=== PATIENT | female | born 1970 | race Caucasian/White ===

== ENCOUNTER 2019-04-29 14:49 | Inpatient (IN) | payer OTHER ==
[~2019-04-29] VITALS: Ht 170.2 cm; Wt 79.6 kg
--- NOTE | ~2019-04-29 | HC ---
[facility] [place] [address] CONSULTATION Name: SARBJIT ROBERT Room #: 214-P [facility] IN M.R.#: [id number] Admission: 04/29/19 Attend Phys: Les Trotter MD Discharge: 04/30/19 Date of : 68 Report #: [id number] THIS REPORT FOR: //name// CC: JANES Trotter DATE OF SERVICE: 04/30/2019 HISTORY OF PRESENT ILLNESS: This is a 49-year-old female patient who was evaluated by me for neurological etiology for the patient's dizziness. This patient indicated that she had small dizziness before yesterday; she woke up and had severe dizziness. The movement of the head makes it worse. She does not have any focal neurological deficit. She is getting better. However, she still has significant amount of symptoms. She had a CT scan of the head, CT angio and MRI as an evaluation. I reviewed those and they all demonstrate no abnormality which can explain the patient's symptoms. REVIEW OF SYSTEMS: Indicates she is healthy. She does have some dizziness occasionally. She had an ovarian cyst in the past. She has a history of hysterectomy and some migraine. Otherwise, 14-point review of system was mostly unremarkable. PAST MEDICAL HISTORY: Positive for mild dizziness, but nothing like this. FAMILY HISTORY: Unremarkable. SOCIAL HISTORY: She does not drink alcohol, but she smokes. PHYSICAL EXAMINATION: Indicates she is alert, responsive, able to follow simple and complex commands. Her speech looks intact. Cranial nerve examination, 2-12 looks unremarkable. Specifically, there is no nystagmus there. She moves all 4 extremities and strength, sensation, reflexes and tone is symmetrical. There is no papilledema. There is no meningeal sign. She is a well-developed individual who does not have any dysmorphic features of eyes, ears and face. Her hearing and vision is adequate. She does not have a thyroid mass. Her cardiac and respiratory examination is unremarkable. No respiratory difficulty or rhonchi was noticed. Blood pressure is 130/84, respiration is 18, pulse is 63, temperature is 98.4. Her white count is 7.4. She did have extensive imaging studies which were reviewed and that was mostly unremarkable. [address] [address] CONSULTATION Name: SARBJIT ROBERT Room #: 214-P [facility] IN ..#: [id number] Admission: 04/29/19 Attend Phys: Les Trotter MD Discharge: 04/30/19 Date of : 68 Report #: [id number] IMPRESSION: It is unlikely there is any neurological etiology for the patient's dizziness. I will recommend concentrating on systemic workup including ENT and any cardiac workup because she has some history of orthostatic hypotension, but the history is not totally clear. In any event, I do not think any further neurological workup is indicated and we should confine ourselves to systemic workup, and I suspect ENT evaluation will be the next step in her evaluation and I would recommend that. Thank you very much for this referral. We will not follow up this patient, but please call if further neurological followup is needed. By: [id number] Juni Rubin MD /nt
[2019-04-29 14:49] VITALS: BP 143/85
[~2019-04-29 14:49] MED LIST: CARAFATE 11 GM/10 M1 PO; CIPROFLOXACIN500 M1 PO; FLAGYL500 MG PO; NOHOMEMEDICATIONS; PERCOCET 5-3251 EACH PO; PROTONIX40 MG PO; VALIUM5 MG PO; ZOFRAN ODT4 MG PO
[2019-04-29 15:16] LABS: ABSOLUTE NEUTROPHILS 5.4 thou/uL (1.4-8.2); BASOPHILS 0.7 % (0.0-2.0); HEMATOCRIT 45.4 % (37.0-47.0); HEMOGLOBIN 15.2 gm/dL (12.0-15.0); LYMPHOCYTES 18.5 % (24.0-44.0); MCH 31.9 pg (26.0-34.0); MCHC 33.4 g/dL (28.0-37.0); MCV 95.6 fL (80.0-100.0); MONOCYTES 6.1 % (1.0-8.0); PLATELET COUNT 233 thou/uL (150-400); POLYS 72.7 % (36.0-66.0); RBC 4.75 mil/uL (4.20-5.00); WBC 7.4 thou/uL (4.0-11.0)
[2019-04-29 15:26] LABS: ANION GAP 7 mmol/L (7-16); BUN 11 mg/dL (7-18); CHLORIDE 102 mmol/L (98-107); CO2 28 mmol/L (21-32); CREATININE 0.9 mg/dL (0.6-1.0); GLUCOSE 89 mg/dL (74-106); POTASSIUM 3.9 mmol/L (3.5-5.1); SODIUM 137 mmol/L (136-145)
[2019-04-29 15:28] LABS: APTT 27.5 Seconds (24.5-32.8)
[2019-04-29 15:36] LABS: ALBUMIN 4.2 g/dL (3.4-5.0); SGOT 19 U/L (15-37); SGPT 30 U/L (30-65); TOTAL BILIRUBIN 0.4 mg/dL (<0.1-1.0); TOTAL PROTEIN 7.5 g/dL (6.4-8.2); TROPONIN-I <0.06 ng/mL (<0.06)
[2019-04-29] MEDS ORDERED: MECLIZINE HCL25 M1 PO (18:28)
[2019-04-29] MEDS ORDERED: ZOFRAN ODT4 MG PO (18:28)
[2019-04-29] MEDS ORDERED: VALIUM5 MG PO (18:28)
[2019-04-29 22:01] VITALS: BP 105/61
[2019-04-29 23:05] VITALS: BP 128/70
[2019-04-29 23:09] VITALS: BP 149/82
--- NOTE | 2019-04-30 00:09 | NUR ---
ADMIT.PT ADMITTED FROM ED TO 214 WITH VERTIGO.PT ACCOMPANIED BY STAFF.PT C/O STILL BEING DIZZINESS AND HEADACHE UPON ARRIVAL TO UNIT.PT ADMITTED OF HAVING ON AND OFF MIGRAINES CAUSED MOSTLY BY STRESS.VSS.NSR ON MONITOR.RA W/O RESP DISTRESS.FALL PRECAUTIONS INTIATED.ASSESSMENT DOCUMENTED.PT ORIENTED TO AND UNIT ACTIVITIES.DENIES USE OF ANY MEDICATIONS APART FROM OVER THE COUNTER EXCEDRINE WHEN NEEDED FOR MIGRAINES AND SINUSES.DENIES NAUSEA.PT DENIES ANY NEEDS AT THIS TIME.WILL CONTINUES TO MONITOR PER POC.
[2019-04-30 04:39] VITALS: BP 144/91
--- NOTE | 2019-04-30 07:33 | EKG ---
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 : 1970 Requested By: Hosea Hawkins Order Number: [id number] MD: Herberth Doll Measurements Intervals [place] Rate: 70 P: 55 WV: 157 QRS: 53 QRSD: 84 T: -23 QT: 409 QTc: 442 Interpretive Statements Sinus rhythm Nonspecific ST and T wave abnormality Compared to ECG 12/23/2003 15:59:11 No significant changes Electronically Signed On 04-30-2019 7:33:15 HEALTH TECHNICIAN by Herberth Doll [email or web address] <ELECTRONICALLY SIGNED> By: Herberth Doll MD, [facility] 04/30/19 0733 1523 1523 Herberth Doll MD, [facility] /EPI
[2019-04-30 08:00] VITALS: BP 130/84
--- NOTE | 2019-04-30 12:02 | NUR ---
ASSUMED CARE AT 0700, SHIFT ASSESSMENT DONE, MEDS GIVEN, VSS. DENIES PAIN, NAUSEA, VOMITING. STILL FEELING LIGHT HEADED AND DIZZY. UP WITH ONE PERSON ASSIST TO THE BATHROOM. FALL PRECAUTIONS IN PLACE. ROOM AIR, NSR ON TELE. NEUROLOGY CONSULT, MRI AND CT SCAN PENDING. LEFT FOR CT SCAN AT 1200 PM. WILL CONTINUE TO ASSESS AND ASSIST WITH ADLs NEEDED.
[2019-04-30 16:00] VITALS: BP 138/86
--- NOTE | 2019-04-30 16:09 | 2DMMODE ---
[facility] [address] [place] [address] 2 D/M-MODE ECHOCARDIOGRAM Name: SARBJIT ROBERT Room #: 214-P [facility] IN .R.#: [id number] Admission: 04/29/19 Attend Phys: Les Trotter, Discharge: Date of : 68 Report #: [id number] THIS REPORT FOR: //name// APPROVED REPORT Study performed: 04/30/2019 15:14:42 EXAM: Comprehensive 2D, Doppler, and color-flow Echocardiogram Patient Location: Echo lab Room #: [facility] Status: routine BSA: 1.91 HR: 63 bpm BP: 130/84 mmHg Rhythm: NSR Other Information Study Quality: Good Indications Dizziness and Vertigo 2D Dimensions RVDd: 35.16 mm IVSd: 8.22 (7-11mm) LVOT Diam: 19.49 (18-24mm) LVDd: 49.90 mm PWd: 8.28 (7-11mm) Ascending Ao: 29.37 (22-36mm) LVDs: 32.42 (25-40mm) Aortic Root: 32.21 mm IVC: 16.00 mm Volumes Left Atrial Volume (Systole) Single Plane 4CH: 58.85 mL Single Plane 2CH: 49.39 mL LA ESV Index: 34.00 mL/m2 Aortic Valve AoV Peak Collins.: 1.13 m/s AO Peak Gr.: 5.09 mmHg LVOT Max P.31 mmHg LVOT Max V: 0.91 m/s TRIPP Vmax: 2.41 cm2 Mitral Valve E/A Ratio: 1.3 MV Decel. Time: 231.01 ms MV E Max Collins.: 0.72 m/s [facility] [address] [place] [address] 2 D/M-MODE ECHOCARDIOGRAM Name: JAKOBSARBJIT Basil Room #: 214-P [facility] IN ..#: [id number] Admission: 04/29/19 Attend Phys: Les Trotter, Discharge: Date of : 68 Report #: [id number] MV A Collins.: 0.55 m/s MV PHT: 66.99 ms IVRT: 106.11 ms Pulmonary Valve PV Peak Collins.: 1.08 m/s PV Peak Gr.: 4.64 mmHg Pulmonary Vein P Vein S: 0.50 m/s P Vein A: 0.27 m/s P Vein D: 0.35 m/s P Vein A Dur.: 92.3 msec P Vein S/D Ratio: 1.43 Tricuspid Valve TR Peak Collins.: 2.50 m/s TR Peak Gr.: 25.03 mmHg PA Pressure: 30.00 mmHg Left Ventricle The left ventricle is normal size. There is normal LV segmental wall motion. There is normal left ventricular wall thickness. Left ventricular systolic function is normal. The left ventricular ejection fraction is within the normal range. LVEF is 55-60%. The left ventricular diastolic function is normal. Right Ventricle The right ventricle is normal size. The right ventricular systolic function is normal. Atria Left atrium is at the upper limits of normal. Right atrium is at the upper limits of normal. Aortic Valve The aortic valve is normal in structure. No aortic regurgitation is present. There is no aortic valvular stenosis. Mitral Valve The mitral valve is normal in structure. Trace mitral regurgitation. No evidence of mitral valve stenosis. Tricuspid Valve The tricuspid valve is normal in structure. There is trace tricuspid regurgitation. Estimated PAP 30 mmHg. There is no pulmonary [place] [address] 2 D/M-MODE ECHOCARDIOGRAM Name: JAKOBSARBJIT Room #: 214-P [facility] IN .R.#: [id number] Admission: 04/29/19 Attend Phys: Les Trotter, Discharge: Date of : 68 Report #: [id number] The pulmonary valve is normal in structure. There is no pulmonic valvular regurgitation. Great Vessels The aortic root is normal in size. IVC is normal in size and collapses >50% with inspiration. Pericardium There is no pericardial effusion. <Conclusion> The left ventricle is normal size. There is normal left ventricular wall thickness. Left ventricular systolic function is normal. The right ventricle is normal size. Left atrium is at the upper limits of normal. The aortic valve is normal in structure. Trace mitral regurgitation. There is trace tricuspid regurgitation. Estimated PAP 30 mmHg. <ELECTRONICALLY SIGNED> By: Alon Osorio MD 04/30/19 1609 08 08 Alon Osorio MD /INF
[2019-04-30 18:27] LABS: TSH 4.682 uIU/mL (0.358-3.740)
[2019-04-30 19:21] VITALS: BP 138/86
--- NOTE | 2019-04-30 19:43 | NUR ---
DISCHARGE ORDER RECEIVED, PERIPHERAL IV WAS TAKEN OUT. LEFT WITH [employer].
== END 2019-04-30 19:50 | disposition home or self-care (01) | DRG 149 ==
LOC: ER 14:49 → 2N 19:50 → EROBS 19:50 → 2N 22:54 → ENTRNSPT 04-30 19:37 → 2N 04-30 19:50
PROVIDERS: Emergency Medicine; Psychiatry & Neurology Neuromuscular Medicine; ADMIT Internal Medicine
DX: H81.11 Benign paroxysmal vertigo, right ear (principal); H93.3X1 Disorders of right acoustic nerve; G43.909 Migraine, unspecified, not intractable, without status migrainosus; F17.210 Nicotine dependence, cigarettes, uncomplicated; Z81.8 Family history of other mental and behavioral disorders; Z90.710 Acquired absence of both cervix and uterus; Z71.6 Tobacco abuse counseling; Z79.899 Other long term (current) drug therapy
CPT/HCPCS: 10081